=== PATIENT | female | born 1945 | race Caucasian/White ===

== ENCOUNTER 2020-08-19 18:09 | Observation (INO) ==
[2020-08-19 18:34] LABS: Hematocrit 41.7 % (37.0-47.0); Hemoglobin 13.1 gm/dL (12.5-16.0); Mean Cell Volume 96.5 fl (78-100); Mean Corpuscular Hemoglobin 30.3 pg (27-31); Mean Corpuscular Hgb Conc 31.4 g/dl (32-36); Neutrophil # 8.2 K/mm3 (1.3-6.0); Neutrophil % 78.6 % (42-75.0); Platelet Count 196 K/mm3 (150-450); Red Blood Count 4.32 M/mm3 (4.2-5.4); Red Cell Distribution Width 13.9 % (11.5-14.0); White Blood Count 10.4 K/mm3 (4.0-10.5)
[2020-08-19 18:52] LABS: ALT 29 U/L (19-67); AST 27 U/L (0-48); Albumin * 3.9 gm/dl (3.4-5.0); Alkaline Phosphatase * 86 U/L (50-170); Anion Gap 11.3 mmol/L (6.8-13.8); Bilirubin, Total 0.4 mg/dL (0.0-1.1); Blood Urea Nitrogen 15 mg/dL (3-23); CRP 0.5 mg/dL (0.0-0.9); Ca. Corrected For Albumin 9.4 mg/dL (8.4-10.2); Calcium * 9.6 mg/dL (7.9-10.9); Carbon Dioxide 28.2 mmol/L (24-32.6); Chloride 101 mmol/L (97-106); Glucose * 121 mg/dL (70-110); Potassium 4.5 mmol/L (3.4-4.6); Sodium 136 mmol/L (132-142); Total Protein 8.5 gm/dL (6.2-8.2); Troponin I Less than 0.017 ng/mL (0.00-0.10)
[2020-08-19] MEDS ORDERED: NORMAL SALINE 1,000 ML IV ONE (19:20)
[2020-08-19] MEDS ORDERED: ACETAMINOPHEN 1,000 MG/100 ML BTL IV ONE (19:21)
--- NOTE | 2020-08-19 19:42 | ERNOTE ---
Headache ER HPI - Narrative Date of Service: 08/19/20 - General Presenting Symptoms: headache Time Seen by Provider: 08/19/20 18:31 Source: patient Exam Limitations: no limitations - Immun/Allergies/Home Medications Immunizations: IMMUNIZATION HX Immunizations Up to Date Yes History of Influenza Vaccine No Hx Pneumococcal Vaccination No Allergies/Adverse Reactions: Allergies No Known Allergies Allergy (Verified 08/19/20 18:24) Home Medications: HOME MEDICATIONS levothyroxine 75 mcg tablet 75 mcg PO DAILY #90 tab 02/08/20 [Last Taken Unknown] lisinopril 10 mg tablet 10 mg PO DAILY #90 tab 02/08/20 [Last Taken Unknown] - History of Present Illness Narrative: Patient presents to the ED for multiple Sx. She had been diagnosed with Covid then developed shingles. Had been feeling so good after all of that that she decided to go out for a walk today. She had walked extensively before her diagnosis. She developed throbbing left sided headache and felt off. This is not the worst pain of her life and she had a headache like this once before but did not seen anyone for it. Her noticed that she was off, having word finding problems and trouble texting. She took her BP meds this am. The onset of these Sx is difficult to ascertain but it seems that she was last known to be well over 3 hours ago and is not in a tPA window by the times related. Timing of Headache: gradual, still present Context Headache: Absent: CO exposure Quality: Present: throbbing Severity-Currently: Present: moderate Headache frequency: Present: no recent headache, similar to previous headache Modifying Factors - (Improves): Reports: other - nothing Modifying Factors - (Worsens): Reports: other - nothing Associated Symptoms: Denies: fever/chills, vomiting, sweating, nasal congestion, facial pain, weakness, loss of consciousness Prior Treament: Denies: currently on antibiotics Review of Systems - Review of Systems Constitutional: Absent: fever EYE: Present: no symptoms reported ENT: Absent: sore throat Respiratory: Absent: shortness of breath Cardiology: Present: chest pain Gastrointestinal/Abdominal: Absent: abdominal pain Genitourinary: Absent: dysuria Neurological: Present: See HPI All Other Systems: All systems neg except as marked Medical History (Last Reviewed 08/19/20 @ 19:33 by Gerald Pacheco MD) Hypothyroidism (Chronic) Hypertension (Chronic) Onset Date: ~07/03/15 Surgical History: Surgical History (Last Reviewed 08/19/20 @ 19:33 by Gerald Pacheco MD) History of section Onset Date: Unknown History of cholecystectomy Onset Date: Unknown Family History: Family History (Last Reviewed 08/19/20 @ 19:33 by Gerald Pacheco MD) Father , 60 yrs No problems noted. Mother CVA (cerebral vascular accident) Hypertension Brother Myocardial infarction Social History: (Last Reviewed 08/19/20 @ 19:33 by Gerald Pacheco MD) Social History: Marital status: household members: spouse Service: No Tobacco: Smoking Status: Former smoker Alcohol: alcohol intake: never Substance Use: substance use type: does not use Dietary Habits: caffeine: Yes Physical Exam - Physical Exam General Appearance: Present: alert, other - patient in no distress Head Exam: Present: normal inspection, no evidence of injury Eye Exam: Normal inspection: bilateral, PERRL: bilateral Ears, Nose, Throat: Present: normal ENT inspection, other - no temporal artery tenderness Neck: Present: normal inspection, other - no meningeal signs Respiratory: Present: no respiratory distress, normal breath sounds, no accessory muscle use, lungs clear Cardiovascular/Chest: Present: regular rate, rhythm, normal peripheral pulses Gastrointestinal/Abdominal: Present: normal bowel sounds, nontender, nondistended, soft Back Exam: Absent: CVA tenderness (R), CVA tenderness (L) Extremity Exam: Present: normal inspection, no edema Neurological Exam: Present: alert, other - patient has an occasional word finding problem. Will insert a work like "ipad" for another item but realize this is wrong then seem upset. Her sjhoes are on the wrong feet. No clear other acute CN deficits. No pronator drift, finger to nose wnl. Full LE strength. Gait stable. Skin Exam: Present: normal color, warm/dry Progress - Results and Orders Patient's Lab Results:: I have reviewed the patient's lab results. - Vital Signs Patient's Vital Signs:: I have reviewed the patient's vital signs. Vital Signs: Vital Signs 08/19/20 18:10 08/19/20 19:13 Temperature 37.4 C Pulse Rate 96 93 Respiratory Rate 13 15 Blood Pressure 189/101 H 173/95 H O2 Sat by Pulse Oximetry 95 94 - EKG EKG #1 EKG read: Interp. by me EKG Comments: Sinus tachycardia Multiple PVCs, New RBBB, no STEMI noted. - X-Ray X-Ray #1 X-Ray: chest Interpretation: Interp. by me X-ray Comments: No real time radiology reads. I personally reviewed the CXR image, no acute process noted. - CT/Ultrasound CT/Ultrasound Narrative: I reviewed the official radiology report for CT head. - Progress/Reassessment Chief Complaint: Headache Progress Note-Subjective: 08/19/20 19:40 Patient has unusual symptoms that are stroke-like and given her age and comorbidities she needs to be assumed to have stroke until proven otherwise. She is not a candidate for tPA based on timing and NIH stoke scale of 1. She also had CP that is vague and atypical. Resolved at re-check. Initial trop negative but repeat troponin will be needed. Nothing to suggest PE or aortic dissection, nothign to suggest SAH or meningitis. I do not feel LP indicated at this time. I spoke wt Dr Shafer who will admit for stroke w/u and rule out. Patient and agreeable. Departure Clinical Impression: Stroke-like symptom, Headache, Chest pain, Ventricular ectopy - Departure Disposition: Still a patient Condition: Stable Referrals: Clarice Aguilar MD [Primary Care Provider] -
--- NOTE | 2020-08-19 21:18 | HP ---
Chief Complaint - Chief Complaint Date of Service: 08/19/20 Time of Service: 21:00 Chief Complaint: confusion History of Present Illness: Patient had recent COVID infection and shingles in June. PMHx of HTN and hypothyroidism. History obtained from patient and ERP. Went for a walk today, and developed a left sided headache. "I haven't had blood pressure as much as it has." When I asked when she had Covid, she replied "I went to test at twenty five." Her blood pressure is usually normal in Dr. Aguilar's office. "No lick card or bic. I didn't have a lot of chrismot (? nonsensical word)." She is aware that some words aren't making sense. In the ED, she had her shoes on the wrong foot, but wasn't aware until it was pointed out. She has no trouble swallowing, and no focal weakness. She denies recent medication changes or signs of infection. She was admitted for stroke like symptoms. Medical History (Last Reviewed 08/19/20 @ 20:52 by Tamara Santillan RN) Hypothyroidism (Chronic) Hypertension (Chronic) Onset Date: ~07/03/15 Surgical History: Surgical History (Last Reviewed 08/19/20 @ 20:52 by Tamara Santillan RN) History of section Onset Date: Unknown History of cholecystectomy Onset Date: Unknown Family History: Family History (Last Reviewed 08/19/20 @ 20:52 by Tamara Santillan RN) Father , 60 yrs No problems noted. Mother CVA (cerebral vascular accident) Hypertension Brother Myocardial infarction Social History: (Last Reviewed 08/19/20 @ 20:52 by Tamara Santillan RN) Social History: Marital status: household members: spouse Service: No Tobacco: Smoking Status: Former smoker Alcohol: alcohol intake: never Substance Use: substance use type: does not use Dietary Habits: caffeine: Yes Review Of Systems (GEN) - Review of Systems Generalized/Overall Review: Absent: Fever EENTM: Present: Nose Congestion Respiratory: Present: Cough - lingering. Absent: Shortness of Breath Cardiac: Absent: Chest Pain, Edema, Syncope Abdominal: Absent: Nausea, Vomiting Genitourinary: Absent: Dysuria Musculoskeletal: Absent: Joint Pain Neurological: Present: Headache Immunizations: IMMUNIZATION HX Immunizations Up to Date Yes History of Influenza Vaccine No Hx Pneumococcal Vaccination No Allergies/Adverse Reactions: Allergies Allergy/AdvReac Type Severity Reaction Status Date / Time No Known Allergies Allergy Verified 08/19/20 18:24 Home Medications: HOME MEDICATIONS levothyroxine 75 mcg tablet 75 mcg PO DAILY #90 tab 02/08/20 [Last Taken Unknown] lisinopril 10 mg tablet 10 mg PO DAILY #90 tab 02/08/20 [Last Taken Unknown] Exam - Exam Vital Signs: Vital Signs - Last Taken Temp 37.9 C 08/19/20 20:53 Pulse 80 08/19/20 20:53 Resp 20 08/19/20 20:53 BP 170/79 H 08/19/20 20:53 Pulse Ox 94 08/19/20 20:53 Constitutional: Present: Alert, Oriented x3, Cooperative, No distress, Obese Respiratory: Present: lungs clear, normal breath sounds Cardiovascular/Chest: Present: regular rate, rhythm Abdomen: Present: soft, nontender Extremity: Absent: lower extremity edema Neurologic: Present: filtration operator II-XII nml as tested, no motor/sensory deficits, normal mood/affect, other - normal [id number], alternating hand motions intact. Is able to articulate, but some words are nonsensical or out of context. Absent: facial droop, motor weakness, sensory deficit Eye contact: Present: cooperative, good eye contact Thoughts: Present: other - states date is September 08 and the season is Diagnostic Studies: Abnormal Lab Results 08/19/20 08/19/20 Range/Units 18:27 18:27 MCHC 31.4 L (32-36) g/dl Immature Gran % (Auto) 0.90 H (0.001-0.429) % Immature Gran # (Auto) 0.09 H (0.000-0.0310) K/mm3 Neutrophils % 78.6 H (42-75.0) % Lymphocytes % 12.9 L (20-51) % Neutrophils # 8.2 H (1.3-6.0) K/mm3 Lymphocytes # 1.34 L (1.5-3.5) k/mm3 Random Glucose 121 H (70-110) mg/dL Total Protein 8.5 H (6.2-8.2) gm/dL Laboratory Results WBC 10.4 K/mm3 (4.0-10.5) 08/19/20 18: RBC 4.32 M/mm3 (4.2-5.4) 08/19/20 18: Hgb 13.1 gm/dL (12.5-16.0) 08/19/20 18: Hct 41.7 % (37.0-47.0) 08/19/20 18: MCV 96.5 fl (78-100) 08/19/20 18: MCH 30.3 pg (27-31) 08/19/20 18: MCHC 31.4 g/dl (32-36) L 08/19/20 18: RDW 13.9 % (11.5-14.0) 08/19/20 18: Plt Count 196 K/mm3 (150-450) 08/19/20 18: MPV 11.0 fl (8-12.5) 08/19/20 18: Immature Gran % (Auto) 0.90 % (0.001-0.429) H 08/19/20 18: Immature Gran # (Auto) 0.09 K/mm3 (0.000-0.0310) H 08/19/20 18: Neutrophils % 78.6 % (42-75.0) H 08/19/20 18: Lymphocytes % 12.9 % (20-51) L 08/19/20 18: Monocytes % 6.1 % (0.0-9) 08/19/20 18: Eosinophils % 1.0 % (0.0-3.0) 08/19/20: Basophils % 0.5 % (0.0-1.0) 08/19/20 18: Nucleated RBC % 0.0 k/mm3 (0-1) 08/19/20 18: Neutrophils # 8.2 K/mm3 (1.3-6.0) H 08/19/20 18: Lymphocytes # 1.34 k/mm3 (1.5-3.5) L 08/19/20 18: Monocytes # 0.6 k/mm3 (0.0-1.0) 08/19/20 18: Eosinophils # 0.1 k/mm3 (0.0-0.7) 08/19/20 18: Absolute Basophils 0.1 k/mm3 (0.0-0.1) 08/19/20 18:27 Sodium 136 mmol/L (132-142) 08/19/20 18:27 Plasma Sodium 136 mmol/L (130-142) 08/19/20 18: Potassium 4.5 mmol/L (3.4-4.6) 08/19/20 18: Chloride 101 mmol/L (97-106) 08/19/20 18: Carbon Dioxide 28.2 mmol/L (24-32.6) 08/19/20 18: Anion Gap 11.3 mmol/L (6.8-13.8) 08/19/20 18: BUN 15 mg/dL (3-23) 08/19/20 18: Creatinine 0.79 mg/dL (0.4-1.4) 08/19/20 18: Est GFR (Non-Af Amer) 75 mL/min (60-130) 08/19/20 18: BUN/Creatinine Ratio 19.0 (9.0-21.6) 08/19/20 18: Random Glucose 121 mg/dL (70-110) H 08/19/20 18: Calcium 9.6 mg/dL (7.9-10.9) 08/19/20 18: Calcium Adj for Albumin 9.4 mg/dL (8.4-10.2) 08/19/20 18: Magnesium 2.0 mg/dL (1.2-2.8) 08/19/20 18: Total Bilirubin 0.4 mg/dL (0.0-1.1) 08/19/20 18: AST 27 U/L (0-48) 08/19/20 18: ALT 29 U/L (19-67) 08/19/20 18: Alkaline Phosphatase 86 U/L (50-170) 08/19/20 18: Troponin I Less than 0.017 ng/mL (0.00-0.10) 08/19/20 18: C-Reactive Prot, Quant 0.5 mg/dL (0.0-0.9) 08/19/20 18: Total Protein 8.5 gm/dL (6.2-8.2) H 08/19/20 18: Albumin 3.9 gm/dl (3.4-5.0) 08/19/20 18:27 Assessment/Plan - Narrative Narrative: She is displaying signs of CVA, with dysphasia. She is aware that her speech is altered. CT head done in the ED did not show anything acute. MRI brain pending. She was started on aspirin in the ED. Headache improved with ofirmev. Speech therapy consult pending. Potential DC within 24 hours. Will gradually lower BP, but not add an agent at this time. - Assessment/Plan (1) Dysphasia Problem: Acute (2) Stroke-like symptom Problem: Acute (3) Headache Problem: Acute (4) Ventricular ectopy Problem: Acute (5) Hypothyroidism Problem: Chronic (6) Hypertension Problem: Chronic
[2020-08-20] MEDS ORDERED: LEVOTHYROXINE SODIUM 75 MCG TABLET PO SCH (07:00)
[2020-08-20] MEDS ORDERED: LISINOPRIL 10 MG TABLET PO SCH (09:00)
[2020-08-20] MEDS ORDERED: ASPIRIN 81 MG TAB.CHEW PO SCH (12:00)
[2020-08-20] MEDS ORDERED: CLOPIDOGREL BISULFATE 75 MG TABLET PO SCH (12:00)
--- NOTE | 2020-08-20 12:01 | DS ---
(1) TIA (transient ischemic attack) Problem: Resolved (2) Dysphasia Problem: Resolved (3) Stroke-like symptom Problem: Resolved (4) Headache Problem: Resolved (5) Ventricular ectopy Problem: Resolved (6) Hypothyroidism Problem: Chronic (7) Hypertension Problem: Chronic Date of Discharge:: 08/20/20 Hospital Course: Patient had recent COVID infection and shingles in June. PMHx of HTN and hypothyroidism. History obtained from patient and ERP. Went for a walk on the day of admission, and developed a left sided headache. "I haven't had blood pressure as much as it has." When I asked when she had Covid, she replied "I went to test at twenty five." Her blood pressure is usually normal in Dr. Aguilar's office. "No lick card or bic. I didn't have a lot of chrismot (? nonsensical word)." She is aware that some words aren't making sense. In the ED, she had her shoes on the wrong foot, but wasn't aware until it was pointed out. She has no trouble swallowing, and no focal weakness. She denies recent medication changes or signs of infection. She was admitted for stroke like symptoms. The following morning, her symptoms had resolved. She did not have problems with any word finding for the entire conversation, and she feels like she can think more clearly. Speech therapy evaluation showed intact cognition, and no dysphasia. MRI showed no acute intracranial process. Her presentation was felt to be due to a TIA. She will be DC'd home with aspirin, plavix, and 20 mg atorvastatin, with the goal to increase to 40-80 mg. Procedures Performed: none Results and Findings: Lab Pending Results 08/19/20 18:27: WBC 10.4, RBC 4.32, Hgb 13.1, Hct 41.7, MCV 96.5, MCH 30.3, MCHC 31.4 L, RDW 13.9, Plt Count 196, MPV 11.0, Immature Gran % (Auto) 0.90 H, Immature Gran # (Auto) 0.09 H, Neutrophils % 78.6 H, Lymphocytes % 12.9 L, Monocytes % 6.1, Eosinophils % 1.0, Basophils % 0.5, Nucleated RBC % 0.0, Neutrophils # 8.2 H, Lymphocytes # 1.34 L, Monocytes # 0.6, Eosinophils # 0.1, Absolute Basophils 0.1 08/19/20 18:27: Sodium 136, Plasma Sodium 136, Potassium 4.5, Chloride 101, Carbon Dioxide 28.2, Anion Gap 11.3, BUN 15, Creatinine 0.79, Est GFR (Non-Af Amer) 75, BUN/Creatinine Ratio 19.0, Random Glucose 121 H, Calcium 9.6, Calcium Adj for Albumin 9.4, Total Bilirubin 0.4, AST 27, ALT 29, Alkaline Phosphatase 86, Troponin I Less than 0.017, C-Reactive Prot, Quant 0.5, Total Protein 8.5 H, Albumin 3.9 08/19/20 18:27: Magnesium 2.0 08/20/20 03:20: Troponin I 0.024 Discharge Location: Home Disposition: Home self-care Condition: Fair Discharge Activity: Activity as tolerated Discharge Diet: General/regular food Referrals: Clariec Aguilar MD [Primary Care Provider] - One Week Prescriptions (Any new or edited meds): Aspirin [Aspirin Chewable] 81 mg PO DAILY #90 tab.chew Transmission Status: Pending to [facility] Atorvastatin Calcium 20 mg PO DAILY #90 tab Transmission Status: Pending to [facility] Clopidogrel Bisulfate [Plavix] 75 mg PO DAILY #30 tab Transmission Status: Pending to [facility] Complete Home Medications List: Complete Home Medication List: levothyroxine 75 mcg tablet 75 mcg PO DAILY #90 tab 02/08/20 lisinopril 10 mg tablet 10 mg PO DAILY #90 tab 02/08/20 Aspirin [Aspirin Chewable] 81 mg PO DAILY #90 tab.chew 08/20/20 Atorvastatin Calcium 20 mg PO DAILY #90 tab 08/20/20 Clopidogrel Bisulfate [Plavix] 75 mg PO DAILY #30 tab 08/20/20
[2020-08-20 15:24] VITALS: BP 146/82
[2020-08-20] MEDS ORDERED: ROSUVASTATIN CALCIUM 20 MG TABLET PO SCH (21:00)
== END 2020-08-20 15:10 | disposition home or self-care (01) ==
LOC: ER 18:09 → MS 18:09
PROVIDERS: ADMIT Family Medicine; ATTEND Family Medicine
DX: E03.9 Hypothyroidism, unspecified; R47.89 Other speech disturbances; R51.9 Headache, unspecified; I10 Essential (primary) hypertension; Z87.891 Personal history of nicotine dependence; G45.9 Transient cerebral ischemic attack, unspecified